=== PATIENT | male | born 1980 | race Caucasian/White ===

== ENCOUNTER 2021-05-06 14:16 | Emergency (ER) | payer MEDICAID ==
[~2021-05-06] VITALS: Ht 167.6 cm; Wt 93.2 kg
[~2021-05-06 14:16] MED LIST: MARIJUANA; PERM60CR4 TOP
[2021-05-06 14:37] VITALS: BP 143/82
[2021-05-06] MEDS ORDERED: PENI500T2 PO (15:09)
== END 2021-05-06 15:20 | disposition home or self-care (01) ==
LOC: ER 14:16
DX: K08.89 Other specified disorders of teeth and supporting structures (principal); F32.9 Major depressive disorder, single episode, unspecified; G89.29 Other chronic pain; Z59.00 Homelessness unspecified; Z79.899 Other long term (current) drug therapy
CPT/HCPCS: 99283

== ENCOUNTER 2022-05-25 19:01 | Emergency (ER) | payer MEDICAID ==
[~2022-05-25] VITALS: Ht 167.6 cm; Wt 81.0 kg
[2022-05-25 19:07] VITALS: BP 116/80
[2022-05-25] MEDS ORDERED: ketorolac trometh. 30mg/ml inj. IM ONE (20:20)
== END 2022-05-25 19:58 | disposition left against medical advice (07) ==
LOC: ER 19:02
DX: M54.9 Dorsalgia, unspecified (principal); Z53.21 Procedure and treatment not carried out due to patient leaving prior to being seen by health care provider

== ENCOUNTER 2022-10-06 13:14 | Emergency (ER) | payer MEDICAID ==
[~2022-10-06] VITALS: Ht 167.6 cm; Wt 93.2 kg
[2022-10-06 13:44] VITALS: BP 143/100
[2022-10-06] MEDS ORDERED: SULF1TAB45 PO (14:34)
[2022-10-06] MEDS ORDERED: CEPH-585 PO (14:34)
[2022-10-06] MEDS ORDERED: sulfamethoxazole/trimethoprim DS (800/160mg) tablet PO ONE (14:35)
[2022-10-06] MEDS ORDERED: ketorolac trometh inj. 60 MG/2 ML VIAL IM ONE (14:35)
[2022-10-06] MEDS ORDERED: cephalexin 250mg capsule PO ONE (14:35)
== END 2022-10-06 15:11 | disposition home or self-care (01) ==
LOC: ER 13:14
DX: L03.012 Cellulitis of left finger (principal); F12.90 Cannabis use, unspecified, uncomplicated; F15.20 Other stimulant dependence, uncomplicated; Z59.00 Homelessness unspecified
CPT/HCPCS: 96372; 99283; J1885

== ENCOUNTER 2023-02-08 03:17 | Emergency (ER) | payer MEDICAID ==
[~2023-02-08] VITALS: Ht 167.6 cm; Wt 68.2 kg
[~2023-02-08 03:17] MED LIST changes: +CEPH-585 PO
[2023-02-08 03:28] VITALS: BP 121/76; PULSE 82; RESP 18; TEMP 98; O2SAT 97
== END 2023-02-08 05:18 | disposition home or self-care (01) ==
LOC: ER 03:18
DX: R07.89 Other chest pain (principal); F15.10 Other stimulant abuse, uncomplicated; G89.29 Other chronic pain; F32.9 Major depressive disorder, single episode, unspecified; F12.90 Cannabis use, unspecified, uncomplicated; Z86.14 Personal history of Methicillin resistant Staphylococcus aureus infection; Z59.00 Homelessness unspecified; Z72.89 Other problems related to lifestyle; Z79.899 Other long term (current) drug therapy
CPT/HCPCS: 71045; 93005; 99283

== ENCOUNTER 2023-04-14 15:13 | Emergency (ER) | payer MEDICAID ==
[~2023-04-14] VITALS: Ht 167.6 cm; Wt 72.7 kg
[2023-04-14 15:22] VITALS: BP 159/98; PULSE 104; RESP 20; O2SAT 100
[2023-04-14] MEDS ORDERED: POLOS EACHEYE (15:35)
[2023-04-14 15:48] VITALS: TEMP 98.5
== END 2023-04-14 15:49 | disposition home or self-care (01) ==
LOC: ER 15:13
DX: H10.9 Unspecified conjunctivitis (principal); F32.A Depression, unspecified; F12.10 Cannabis abuse, uncomplicated; F15.10 Other stimulant abuse, uncomplicated; Z79.899 Other long term (current) drug therapy
CPT/HCPCS: 99283

== ENCOUNTER 2023-04-28 15:04 | Emergency (ER) | payer MEDICAID ==
[~2023-04-28] VITALS: Ht 167.6 cm; Wt 75.3 kg
[2023-04-28 15:11] VITALS: BP 122/88; PULSE 107; RESP 18; TEMP 99.8; O2SAT 98
[2023-04-28] MEDS ORDERED: POLOS RIGHTEYE (15:17)
== END 2023-04-28 15:37 | disposition home or self-care (01) ==
LOC: ER 15:04
DX: H10.89 Other conjunctivitis (principal); Z76.0 Encounter for issue of repeat prescription; F32.A Depression, unspecified; G89.29 Other chronic pain; F12.10 Cannabis abuse, uncomplicated; F15.10 Other stimulant abuse, uncomplicated; Z79.899 Other long term (current) drug therapy
CPT/HCPCS: 99281

== ENCOUNTER 2023-05-30 14:12 | Emergency (ER) | payer MEDICAID ==
[~2023-05-30] VITALS: Ht 167.6 cm; Wt 73.8 kg
[2023-05-30 14:13] VITALS: BP 126/80; PULSE 121; TEMP 99.8; O2SAT 97
[2023-05-30] MEDS ORDERED: LIDOCAINE 1%/EPI 1:100,000 inj. 10 ML multi-dose vial IJ ONE (14:40)
[2023-05-30] MEDS ORDERED: CefTRIAXone 1000mg IM Kit (w/lidocaine diluent) IM ONE (14:40)
[2023-05-30] MEDS ORDERED: IBUP-1986 PO (14:51)
[2023-05-30] MEDS: ketorolac trometh. 30mg/ml inj. IM ONE ×2 (15:09→15:13)
== END 2023-05-30 15:15 | disposition home or self-care (01) ==
LOC: ER 14:13
DX: L02.01 Cutaneous abscess of face (principal); F32.9 Major depressive disorder, single episode, unspecified; G89.29 Other chronic pain; F17.200 Nicotine dependence, unspecified, uncomplicated; F12.90 Cannabis use, unspecified, uncomplicated; F15.90 Other stimulant use, unspecified, uncomplicated; Z86.14 Personal history of Methicillin resistant Staphylococcus aureus infection; Z59.00 Homelessness unspecified; Z79.899 Other long term (current) drug therapy; Z72.89 Other problems related to lifestyle
CPT/HCPCS: 10060; 96372; 99283; J0696; A6449; J1885

== ENCOUNTER 2023-06-03 19:06 | Emergency (ER) | payer MEDICAID ==
[~2023-06-03] VITALS: Ht 167.6 cm; Wt 78.6 kg
[~2023-06-03 19:06] MED LIST changes: +IBUP-1986 PO
[2023-06-03 19:20] VITALS: BP 173/100; PULSE 100; RESP 16; TEMP 98.2; O2SAT 96
== END 2023-06-03 20:28 | disposition home or self-care (01) ==
LOC: ER 19:06
DX: L03.211 Cellulitis of face (principal); G89.29 Other chronic pain; F12.90 Cannabis use, unspecified, uncomplicated; F15.90 Other stimulant use, unspecified, uncomplicated; Z72.89 Other problems related to lifestyle; Z86.14 Personal history of Methicillin resistant Staphylococcus aureus infection; Z79.899 Other long term (current) drug therapy; Z79.2 Long term (current) use of antibiotics
CPT/HCPCS: 99281

== ENCOUNTER 2023-07-27 17:21 | Emergency (ER) | payer MEDICAID ==
[~2023-07-27] VITALS: Ht 167.6 cm; Wt 79.5 kg
[2023-07-27 17:27] VITALS: BP 126/89; PULSE 106; RESP 18; TEMP 97.5; O2SAT 100
[2023-07-27] MEDS ORDERED: POLOS RIGHTEYE (17:34)
== END 2023-07-27 18:09 | disposition home or self-care (01) ==
LOC: ER 17:22
DX: H10.31 Unspecified acute conjunctivitis, right eye (principal); F32.A Depression, unspecified; G89.29 Other chronic pain; Z79.899 Other long term (current) drug therapy
CPT/HCPCS: 99283

== ENCOUNTER 2023-07-28 13:36 | Emergency (ER) | payer MEDICAID ==
[~2023-07-28 13:36] MED LIST changes: +POLOS RIGHTEYE
== END 2023-07-28 15:00 | disposition left against medical advice (07) ==
LOC: ER 13:36
DX: H57.89 Other specified disorders of eye and adnexa (principal); Z53.21 Procedure and treatment not carried out due to patient leaving prior to being seen by health care provider

== ENCOUNTER 2023-07-31 05:20 | Emergency (ER) | payer MEDICAID ==
[~2023-07-31] VITALS: Ht 167.6 cm; Wt 75.0 kg
[2023-07-31 05:44] VITALS: BP 100/50; PULSE 100; RESP 16; TEMP 98.2; O2SAT 100
== END 2023-07-31 07:18 | disposition left against medical advice (07) ==
LOC: ER 05:20
DX: M25.521 Pain in right elbow (principal); Z53.21 Procedure and treatment not carried out due to patient leaving prior to being seen by health care provider
CPT/HCPCS: 99281

== ENCOUNTER 2023-08-12 07:35 | Emergency (ER) | payer MEDICAID ==
[~2023-08-12] VITALS: Ht 167.6 cm; Wt 71.1 kg
[~2023-08-12 07:35] MED LIST changes: -POLOS RIGHTEYE
[2023-08-12 07:36] VITALS: BP 171/130; PULSE 89; RESP 18; TEMP 97.7; O2SAT 98
== END 2023-08-12 08:27 | disposition left against medical advice (07) ==
LOC: ER 07:35
DX: S61.452A Open bite of left hand, initial encounter (principal); Z53.21 Procedure and treatment not carried out due to patient leaving prior to being seen by health care provider; W54.0XXA Bitten by dog, initial encounter; Y93.89 Activity, other specified; Y92.89 Other specified places as the place of occurrence of the external cause; Y99.8 Other external cause status
CPT/HCPCS: 99281

== ENCOUNTER 2023-08-22 05:34 | Emergency (ER) | payer MEDICAID ==
[~2023-08-22] VITALS: Ht 167.6 cm; Wt 71.3 kg
[2023-08-22 05:53] VITALS: BP 127/83; PULSE 80; RESP 16; TEMP 98; O2SAT 100
== END 2023-08-22 09:29 | disposition home or self-care (01) ==
LOC: ER 05:34
DX: M25.561 Pain in right knee (principal); F12.90 Cannabis use, unspecified, uncomplicated; F15.90 Other stimulant use, unspecified, uncomplicated; Z79.1 Long term (current) use of non-steroidal anti-inflammatories (NSAID); Z79.2 Long term (current) use of antibiotics; Z79.899 Other long term (current) drug therapy
CPT/HCPCS: 73564; 99283

== ENCOUNTER 2023-08-22 20:38 | Emergency (ER) | payer MEDICAID ==
[~2023-08-22] VITALS: Ht 162.6 cm; Wt 68.4 kg
[2023-08-22 20:47] VITALS: BP 125/96; PULSE 74; RESP 16; TEMP 98; O2SAT 97
== END 2023-08-22 22:27 | disposition left against medical advice (07) ==
LOC: ER 20:39
DX: M25.521 Pain in right elbow (principal); Z53.21 Procedure and treatment not carried out due to patient leaving prior to being seen by health care provider
CPT/HCPCS: 99281

== ENCOUNTER 2023-09-05 10:15 | Emergency (ER) | payer MEDICAID ==
[~2023-09-05] VITALS: Ht 170.2 cm; Wt 70.7 kg
[2023-09-05 10:16] VITALS: BP 133/80; PULSE 103; RESP 16; TEMP 98.6; O2SAT 100
[2023-09-05] MEDS ORDERED: SULF1TAB49 PO (11:12)
== END 2023-09-05 11:15 | disposition home or self-care (01) ==
LOC: ER 10:15
DX: H17.9 Unspecified corneal scar and opacity (principal); L08.9 Local infection of the skin and subcutaneous tissue, unspecified; G89.29 Other chronic pain; M54.9 Dorsalgia, unspecified; F12.90 Cannabis use, unspecified, uncomplicated; F15.90 Other stimulant use, unspecified, uncomplicated; F32.A Depression, unspecified; Z59.00 Homelessness unspecified; Z79.2 Long term (current) use of antibiotics; Z79.899 Other long term (current) drug therapy; Z72.89 Other problems related to lifestyle
CPT/HCPCS: 99284

== ENCOUNTER 2023-09-06 20:14 | Emergency (ER) | payer MEDICAID ==
[~2023-09-06 20:14] MED LIST changes: +SULF1TAB49 PO
== END 2023-09-06 23:54 | disposition left against medical advice (07) ==
LOC: ER 20:14
DX: Z53.21 Procedure and treatment not carried out due to patient leaving prior to being seen by health care provider (principal)

== ENCOUNTER 2023-10-13 02:43 | Emergency (ER) | payer MEDICAID ==
[~2023-10-13] VITALS: Ht 167.6 cm; Wt 75.0 kg
[~2023-10-13 02:43] MED LIST changes: -CEPH-585 PO; -SULF1TAB49 PO
[2023-10-13] MEDS ORDERED: IBUP-1984 PO (04:29)
[2023-10-13] MEDS ORDERED: CLIN300C3 PO (04:29)
[2023-10-13] MEDS ORDERED: clindamycin 150mg capsule PO ONE (04:30)
[2023-10-13 04:59] VITALS: BP 115/74; PULSE 85; RESP 16; TEMP 98.4; O2SAT 99
== END 2023-10-13 05:02 | disposition home or self-care (01) ==
LOC: ER 02:44
DX: K08.89 Other specified disorders of teeth and supporting structures (principal); F12.90 Cannabis use, unspecified, uncomplicated; F15.90 Other stimulant use, unspecified, uncomplicated; Z79.2 Long term (current) use of antibiotics; Z79.1 Long term (current) use of non-steroidal anti-inflammatories (NSAID); Z79.899 Other long term (current) drug therapy
CPT/HCPCS: 99283

== ENCOUNTER 2023-10-24 04:03 | Emergency (ER) | payer MEDICAID ==
[~2023-10-24] VITALS: Ht 167.6 cm; Wt 70.0 kg
[~2023-10-24 04:03] MED LIST changes: +CLIN300C3 PO; +IBUP-1984 PO
[2023-10-24 04:16] VITALS: BP 137/92; PULSE 110; RESP 18; TEMP 98; O2SAT 96
[2023-10-25] MEDS ORDERED: CIPR2.5D21 RIGHTEYE (03:28)
== END 2023-10-24 05:27 | disposition left against medical advice (07) ==
LOC: ER 04:04
DX: H57.11 Ocular pain, right eye (principal); Z53.21 Procedure and treatment not carried out due to patient leaving prior to being seen by health care provider

== ENCOUNTER 2023-10-24 06:55 | Emergency (ER) | payer MEDICAID ==
[2023-10-25] MEDS ORDERED: CIPR2.5D21 RIGHTEYE (03:28)
== END 2023-10-24 07:07 | disposition left against medical advice (07) ==
LOC: ER 06:56
DX: H57.10 Ocular pain, unspecified eye (principal); Z53.21 Procedure and treatment not carried out due to patient leaving prior to being seen by health care provider

== ENCOUNTER 2023-10-24 23:53 | Emergency (ER) | payer MEDICAID ==
[~2023-10-24] VITALS: Ht 167.6 cm; Wt 73.5 kg
[2023-10-24 23:56] VITALS: BP 140/97; PULSE 76; RESP 20; O2SAT 100
[2023-10-25] MEDS ORDERED: CIPR2.5D21 RIGHTEYE (03:28)
[2023-10-25 03:36] VITALS: TEMP 98.6
== END 2023-10-25 03:37 | disposition home or self-care (01) ==
LOC: ER 23:53
DX: H44.001 Unspecified purulent endophthalmitis, right eye (principal); F12.90 Cannabis use, unspecified, uncomplicated; F15.90 Other stimulant use, unspecified, uncomplicated; Z79.2 Long term (current) use of antibiotics; Z79.1 Long term (current) use of non-steroidal anti-inflammatories (NSAID); Z79.899 Other long term (current) drug therapy
CPT/HCPCS: 99283

== ENCOUNTER 2023-11-09 12:42 | Emergency (ER) | payer MEDICAID ==
[~2023-11-09] VITALS: Ht 167.6 cm; Wt 72.7 kg
[~2023-11-09 12:42] MED LIST changes: -CLIN300C3 PO
[2023-11-09 12:50] VITALS: BP 143/97; PULSE 65; RESP 16; TEMP 98.2; O2SAT 98
[2023-11-09] MEDS: ciprofloxacin 0.3% 2.5ml ophthalmic solution RIGHTEYE ONE (13:57)
== END 2023-11-09 14:04 | disposition home or self-care (01) ==
LOC: ER 12:42
DX: H10.31 Unspecified acute conjunctivitis, right eye (principal); F12.90 Cannabis use, unspecified, uncomplicated; F17.210 Nicotine dependence, cigarettes, uncomplicated; F15.10 Other stimulant abuse, uncomplicated
CPT/HCPCS: 99283

== ENCOUNTER 2023-11-30 18:12 | Emergency (ER) | payer MEDICAID ==
[~2023-11-30] VITALS: Ht 162.6 cm; Wt 70.6 kg
[~2023-11-30 18:12] MED LIST changes: -IBUP-1984 PO
[2023-11-30] MEDS ORDERED: SULF1TAB49 PO (18:28)
[2023-11-30] MEDS ORDERED: MUPI22OI30 NAS (18:28)
[2023-11-30 18:35] VITALS: BP 147/82; PULSE 87; RESP 18; TEMP 98.5; O2SAT 96
== END 2023-11-30 18:36 | disposition home or self-care (01) ==
LOC: ER 18:13
DX: J34.0 Abscess, furuncle and carbuncle of nose (principal); F15.90 Other stimulant use, unspecified, uncomplicated; F12.90 Cannabis use, unspecified, uncomplicated; Z79.1 Long term (current) use of non-steroidal anti-inflammatories (NSAID); Z79.899 Other long term (current) drug therapy
CPT/HCPCS: 99283

== ENCOUNTER 2023-12-29 19:16 | Emergency (ER) | payer MEDICAID ==
[~2023-12-29] VITALS: Ht 165.1 cm; Wt 75.0 kg
[2023-12-29 19:31] VITALS: BP 98/60; PULSE 88; RESP 18; O2SAT 97
[2023-12-29] MEDS ORDERED: CEPH-585 PO (20:11)
[2023-12-29 20:16] VITALS: TEMP 98.5
[2023-12-29] MEDS: cephalexin 250mg capsule PO ONE (20:23)
[2023-12-29] MEDS: CefTRIAXone 1000mg IM Kit (w/lidocaine diluent) IM ONE (20:23)
== END 2023-12-29 20:24 | disposition home or self-care (01) ==
LOC: ER 19:17
DX: L03.116 Cellulitis of left lower limb (principal); G89.29 Other chronic pain; F32.A Depression, unspecified; F12.90 Cannabis use, unspecified, uncomplicated; F15.90 Other stimulant use, unspecified, uncomplicated; Z59.00 Homelessness unspecified; Z79.1 Long term (current) use of non-steroidal anti-inflammatories (NSAID); Z79.899 Other long term (current) drug therapy; Z72.89 Other problems related to lifestyle
CPT/HCPCS: 99283

== ENCOUNTER 2024-01-04 19:23 | Emergency (ER) | payer MEDICAID ==
[~2024-01-04] VITALS: Ht 167.6 cm; Wt 75.0 kg
[~2024-01-04 19:23] MED LIST changes: +CEPH-585 PO
[2024-01-04 19:34] VITALS: BP 135/76; PULSE 105; TEMP 98.5; O2SAT 98
[2024-01-04 20:29] VITALS: RESP 18
== END 2024-01-04 20:30 | disposition home or self-care (01) ==
LOC: ER 19:24
DX: T16.2XXA Foreign body in left ear, initial encounter (principal); G89.29 Other chronic pain; F32.A Depression, unspecified; F12.90 Cannabis use, unspecified, uncomplicated; F15.90 Other stimulant use, unspecified, uncomplicated; Z79.1 Long term (current) use of non-steroidal anti-inflammatories (NSAID); Z79.2 Long term (current) use of antibiotics; Z79.899 Other long term (current) drug therapy; W44.8XXA Other foreign body entering into or through a natural orifice, initial encounter; Y93.89 Activity, other specified; Y92.89 Other specified places as the place of occurrence of the external cause; Y99.8 Other external cause status
CPT/HCPCS: 99284

== ENCOUNTER 2024-01-16 08:20 | Emergency (ER) | payer MEDICAID | END 2024-01-16 08:35 | disposition left against medical advice (07) | LOC: ER 08:21 | DX: T63.391A Toxic effect of venom of other spider, accidental (unintentional), initial encounter (principal); Z53.21 Procedure and treatment not carried out due to patient leaving prior to being seen by health care provider; Y92.89 Other specified places as the place of occurrence of the external cause ==

== ENCOUNTER 2024-02-19 02:20 | Emergency (ER) | payer MEDICAID ==
[~2024-02-19] VITALS: Ht 167.6 cm; Wt 66.3 kg
[2024-02-19 02:57] VITALS: BP 118/72; PULSE 89; RESP 22; TEMP 97.8; O2SAT 99
== END 2024-02-19 04:45 | disposition left against medical advice (07) ==
LOC: ER 02:21
DX: L02.413 Cutaneous abscess of right upper limb (principal); G89.29 Other chronic pain; F32.A Depression, unspecified; F12.90 Cannabis use, unspecified, uncomplicated; F15.90 Other stimulant use, unspecified, uncomplicated; Z72.89 Other problems related to lifestyle; Z59.00 Homelessness unspecified; Z79.1 Long term (current) use of non-steroidal anti-inflammatories (NSAID); Z79.2 Long term (current) use of antibiotics; Z79.899 Other long term (current) drug therapy
CPT/HCPCS: 99281

== ENCOUNTER 2024-02-27 01:06 | Emergency (ER) | payer MEDICAID ==
[~2024-02-27] VITALS: Ht 167.6 cm; Wt 69.4 kg
[2024-02-27 01:40] VITALS: BP 135/75; PULSE 88; RESP 15; TEMP 98.4; O2SAT 99
[2024-02-27] MEDS ORDERED: acetaminophen 325mg tablet PO ONE (02:25)
[2024-02-27] MEDS: acetaminophen 325mg tablet PO ONE (02:37)
== END 2024-02-27 02:42 | disposition home or self-care (01) ==
LOC: ER 01:06
DX: S60.221A Contusion of right hand, initial encounter (principal); G89.29 Other chronic pain; F32.A Depression, unspecified; F12.90 Cannabis use, unspecified, uncomplicated; F15.90 Other stimulant use, unspecified, uncomplicated; Z59.00 Homelessness unspecified; Z72.89 Other problems related to lifestyle; Z79.1 Long term (current) use of non-steroidal anti-inflammatories (NSAID); Z79.2 Long term (current) use of antibiotics; Z79.899 Other long term (current) drug therapy; W18.39XA Other fall on same level, initial encounter; Y93.89 Activity, other specified; Y92.89 Other specified places as the place of occurrence of the external cause; Y99.8 Other external cause status
CPT/HCPCS: 73130; 99284

== ENCOUNTER 2024-03-15 23:51 | Emergency (ER) | payer MEDICAID | END 2024-03-16 00:56 | disposition left against medical advice (07) | LOC: ER 23:51 | DX: M79.643 Pain in unspecified hand (principal); Z53.21 Procedure and treatment not carried out due to patient leaving prior to being seen by health care provider ==

== ENCOUNTER 2024-03-16 06:46 | Emergency (ER) | payer MEDICAID ==
[~2024-03-16] VITALS: Ht 172.7 cm; Wt 75.1 kg
[2024-03-16 06:53] VITALS: BP 131/62; PULSE 88; RESP 16; O2SAT 94
[2024-03-16 12:03] VITALS: TEMP 98
== END 2024-03-16 09:57 | disposition left against medical advice (07) ==
LOC: ER 06:46
DX: M79.641 Pain in right hand (principal); G89.29 Other chronic pain; F32.A Depression, unspecified; F15.90 Other stimulant use, unspecified, uncomplicated; Z79.2 Long term (current) use of antibiotics; Z79.1 Long term (current) use of non-steroidal anti-inflammatories (NSAID); Z79.899 Other long term (current) drug therapy; Z59.00 Homelessness unspecified; Z72.89 Other problems related to lifestyle
CPT/HCPCS: 99281

== ENCOUNTER 2024-03-22 14:09 | Emergency (ER) | payer MEDICAID ==
[~2024-03-22] VITALS: Ht 167.6 cm; Wt 72.7 kg
[2024-03-22] MEDS ORDERED: IBUP-1985 PO (15:19)
[2024-03-22] MEDS ORDERED: ACET-1025 PO (15:19)
[2024-03-22 16:03] VITALS: BP 134/41; PULSE 68; RESP 14; TEMP 97.8; O2SAT 97
== END 2024-03-22 16:04 | disposition home or self-care (01) ==
LOC: ER 14:10
DX: S90.01XA Contusion of right ankle, initial encounter (principal); F32.A Depression, unspecified; F12.90 Cannabis use, unspecified, uncomplicated; F15.90 Other stimulant use, unspecified, uncomplicated; Z79.1 Long term (current) use of non-steroidal anti-inflammatories (NSAID); Z79.2 Long term (current) use of antibiotics; X50.1XXA Overexertion from prolonged static or awkward postures, initial encounter; Y93.89 Activity, other specified; Y92.89 Other specified places as the place of occurrence of the external cause; Y99.8 Other external cause status
CPT/HCPCS: 73610; 99283

== ENCOUNTER 2024-04-19 14:06 | Emergency (ER) | payer MEDICAID ==
[~2024-04-19] VITALS: Ht 172.7 cm; Wt 65.9 kg
[~2024-04-19 14:06] MED LIST changes: +IBUP-1985 PO
[2024-04-19 14:36] VITALS: BP 127/94; PULSE 92; RESP 18; TEMP 98.2; O2SAT 98
[2024-04-20] MEDS ORDERED: SALI1KIT9 TOP (00:05)
== END 2024-04-19 15:56 | disposition left against medical advice (07) ==
LOC: ER 14:07
DX: R22.31 Localized swelling, mass and lump, right upper limb (principal); Z53.21 Procedure and treatment not carried out due to patient leaving prior to being seen by health care provider

== ENCOUNTER 2024-04-19 21:17 | Emergency (ER) | payer MEDICAID ==
[~2024-04-19] VITALS: Ht 167.6 cm; Wt 71.8 kg
[2024-04-19 21:22] VITALS: BP 133/92; PULSE 88; RESP 16; TEMP 98.1; O2SAT 99
[2024-04-20] MEDS ORDERED: SALI1KIT9 TOP (00:05)
== END 2024-04-20 00:22 | disposition home or self-care (01) ==
LOC: ER 21:18
DX: B07.9 Viral wart, unspecified (principal); F17.200 Nicotine dependence, unspecified, uncomplicated; F12.90 Cannabis use, unspecified, uncomplicated; F15.90 Other stimulant use, unspecified, uncomplicated; Z79.899 Other long term (current) drug therapy; Z59.00 Homelessness unspecified
CPT/HCPCS: 99282

== ENCOUNTER 2024-04-23 00:58 | Emergency (ER) | payer MEDICAID ==
[~2024-04-23] VITALS: Ht 167.6 cm; Wt 70.0 kg
[~2024-04-23 00:58] MED LIST changes: +SALI1KIT9 TOP
[2024-04-23 00:59] VITALS: BP 163/98; PULSE 98; RESP 20; TEMP 97.9; O2SAT 98
[2024-04-23] MEDS ORDERED: AMOX500C2 PO (01:24)
== END 2024-04-23 01:54 | disposition home or self-care (01) ==
LOC: ER 00:59
DX: S02.5XXA Fracture of tooth (traumatic), initial encounter for closed fracture (principal); G89.29 Other chronic pain; F32.A Depression, unspecified; F12.90 Cannabis use, unspecified, uncomplicated; F15.90 Other stimulant use, unspecified, uncomplicated; Z59.00 Homelessness unspecified; Z72.89 Other problems related to lifestyle; Z79.1 Long term (current) use of non-steroidal anti-inflammatories (NSAID); Z79.899 Other long term (current) drug therapy; X58.XXXA Exposure to other specified factors, initial encounter; Y93.89 Activity, other specified; Y92.89 Other specified places as the place of occurrence of the external cause; Y99.8 Other external cause status
CPT/HCPCS: 99283

== ENCOUNTER 2024-05-06 06:36 | Emergency (ER) | payer MEDICAID ==
[~2024-05-06] VITALS: Ht 167.6 cm; Wt 71.4 kg
[2024-05-06 06:45] VITALS: BP 136/94; PULSE 74; RESP 16; TEMP 97.8; O2SAT 99
[2024-05-07] MEDS ORDERED: IBUP-1984 PO (05:06)
== END 2024-05-06 07:39 | disposition left against medical advice (07) ==
LOC: ER 06:37
DX: M25.531 Pain in right wrist (principal); Z53.21 Procedure and treatment not carried out due to patient leaving prior to being seen by health care provider; V19.88XA Pedal cyclist (driver) (passenger) injured in other specified transport accidents, initial encounter; Y93.89 Activity, other specified; Y92.89 Other specified places as the place of occurrence of the external cause; Y99.8 Other external cause status

== ENCOUNTER 2024-05-07 03:55 | Emergency (ER) | payer MEDICAID ==
[~2024-05-07] VITALS: Ht 167.6 cm; Wt 75.0 kg
[2024-05-07 04:00] VITALS: BP 160/105; PULSE 94; RESP 16; TEMP 98.2; O2SAT 98
[2024-05-07] MEDS ORDERED: IBUP-1984 PO (05:06)
== END 2024-05-07 05:46 | disposition home or self-care (01) ==
LOC: ER 03:56
DX: M25.531 Pain in right wrist (principal); F12.90 Cannabis use, unspecified, uncomplicated; F15.90 Other stimulant use, unspecified, uncomplicated; Z59.00 Homelessness unspecified; Z79.1 Long term (current) use of non-steroidal anti-inflammatories (NSAID); Z79.2 Long term (current) use of antibiotics; Z79.899 Other long term (current) drug therapy
CPT/HCPCS: 99282

== ENCOUNTER 2024-05-13 01:32 | Emergency (ER) | payer MEDICAID ==
[~2024-05-13] VITALS: Ht 167.6 cm; Wt 70.1 kg
[~2024-05-13 01:32] MED LIST changes: +IBUP-1984 PO
[2024-05-13 01:34] VITALS: TEMP 98
[2024-05-13 03:42] VITALS: BP 148/90; PULSE 90; RESP 18; O2SAT 97
== END 2024-05-13 03:44 | disposition home or self-care (01) ==
LOC: ER 01:33
DX: M79.671 Pain in right foot (principal); M79.672 Pain in left foot; F32.A Depression, unspecified; F15.90 Other stimulant use, unspecified, uncomplicated; F12.90 Cannabis use, unspecified, uncomplicated
CPT/HCPCS: 99281

== ENCOUNTER 2024-05-19 01:01 | Emergency (ER) | payer MEDICAID ==
[~2024-05-19] VITALS: Ht 167.6 cm; Wt 70.1 kg
[~2024-05-19 01:01] MED LIST changes: -IBUP-1984 PO
[2024-05-19 01:07] VITALS: BP 140/118; PULSE 70; RESP 16; TEMP 98; O2SAT 97
== END 2024-05-19 04:36 | disposition left against medical advice (07) ==
LOC: ER 01:01
DX: K08.89 Other specified disorders of teeth and supporting structures (principal); Z53.21 Procedure and treatment not carried out due to patient leaving prior to being seen by health care provider